=== PATIENT | male | born 2000 ===

== ENCOUNTER 2020-08-29 15:19 | Emergency (ER) | payer SELFPAY ==
[~2020-08-29] VITALS: Ht 177.8 cm; Wt 61.0 kg
--- NOTE | 2020-08-29 15:38 | NUR ---
FIRST CALL. NO ANSWER IN LOBBY
[2020-08-29 17:11] VITALS: BP 106/65
== END 2020-08-29 17:15 | disposition home or self-care (01) ==
LOC: ED 16:48
DX: L20.89 Other atopic dermatitis (principal)
CPT/HCPCS: 99282

== ENCOUNTER 2020-11-02 13:11 | Emergency (ER) | payer OTHER ==
[~2020-11-02] VITALS: Ht 172.7 cm; Wt 62.6 kg
[2020-11-02 15:25] VITALS: BP 115/77
--- NOTE | 2020-11-02 15:30 | NUR ---
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 PT SMELLS STRONGLY OF MARIJUANA.
[2020-11-02 15:50] LABS: BASOPHILS % (AUTO) 1 % (0-1); EOSINOPHILS % (AUTO) 0 % (1-7); LYMPHOCYTES % (AUTO) 39 % (22-44); MEAN CORPUSCULAR HGB CONC 31.8 g/dL (33.2-36.2); MEAN PLATELET VOLUME 7.2 fL (7.4-10.4); MONOCYTES % (AUTO) 20 % (2-9); NEUTROPHILS % (AUTO) 40 % (42-75); PLATELET COUNT 257 x10^3/uL (130-400); RED BLOOD COUNT 6.27 x10^6/uL (4.38-5.82); RED CELL DISTRIBUTION WIDTH 14.7 % (9.4-14.8)
[2020-11-02 16:06] LABS: ALBUMIN 4.2 g/dL (3.4-5.0); ANION GAP 4 mmol/L (5-15); CALCIUM 9.3 mg/dL (8.5-10.1); CHLORIDE 102 mmol/L (98-107)
[2020-11-02 16:08] LABS: ALANINE AMINOTRANSFERASE 20 U/L (12-78); ALKALINE PHOSPHATASE 91 U/L (45-117); BILIRUBIN,TOTAL 0.3 mg/dL (0.2-1.0); TOTAL PROTEIN 8.8 g/dL (6.4-8.2)
--- NOTE | 2020-11-02 16:19 | NUR ---
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
--- NOTE | 2020-11-02 16:30 | NUR ---
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
--- NOTE | 2020-11-02 16:56 | NUR ---
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
== END 2020-11-02 16:58 | disposition left against medical advice (07) ==
LOC: ED 16:50
DX: R51.9 Headache, unspecified (principal); M79.10 Myalgia, unspecified site
CPT/HCPCS: 36415; 80053; 85025; 99283

== ENCOUNTER 2020-11-03 19:48 | Emergency (ER) | payer OTHER ==
[~2020-11-03] VITALS: Ht 162.6 cm; Wt 63.0 kg
[2020-11-03 23:01] VITALS: BP 109/70
== END 2020-11-03 23:10 | disposition home or self-care (01) ==
LOC: ED 20:00
DX: U07.1 COVID-19 (principal); B34.9 Viral infection, unspecified; R51.9 Headache, unspecified; R00.0 Tachycardia, unspecified
CPT/HCPCS: 99283; U0003; U0005

== ENCOUNTER 2020-11-17 19:38 | Emergency (ER) | payer SELFPAY ==
[~2020-11-17] VITALS: Ht 167.6 cm; Wt 65.0 kg
[2020-11-17 19:45] VITALS: BP 110/57
[2020-11-17] MEDS ORDERED: ONDANSETRON ODT 4 MG ONE (19:48)
[2020-11-17] MEDS ORDERED: ONDANSETRON ODT 4 MG PO ONE (20:00)
--- NOTE | 2020-11-17 20:11 | NUR ---
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
--- NOTE | 2020-11-17 20:44 | NUR ---
VP CLINICAL: SPOKE WITH PT IN LOBBY REGARDING LABS, PT NOW AGREES TO HAVE LABS DRAWN. CALL PLACED TO LAB, WILL BE DRAWN SOON
[2020-11-17 21:02] LABS: BASOPHILS % (AUTO) 1 % (0-1); EOSINOPHILS % (AUTO) 1 % (1-7); LYMPHOCYTES % (AUTO) 43 % (22-44); MEAN CORPUSCULAR HEMOGLOBIN 22.9 pg (27.5-34.5); MEAN CORPUSCULAR HGB CONC 31.8 g/dL (33.2-36.2); MONOCYTES % (AUTO) 8 % (2-9); NEUTROPHILS % (AUTO) 47 % (42-75); PLATELET COUNT 392 x10^3/uL (130-400); RED BLOOD COUNT 5.88 x10^6/uL (4.38-5.82); RED CELL DISTRIBUTION WIDTH 14.6 % (9.4-14.8)
[2020-11-17 21:08] LABS: ALANINE AMINOTRANSFERASE 18 U/L (12-78); ALBUMIN 4.1 g/dL (3.4-5.0); ANION GAP 9 mmol/L (5-15); CALCIUM 9.1 mg/dL (8.5-10.1); CHLORIDE 108 mmol/L (98-107); CREATININE 0.86 mg/dL (0.7-1.3)
[2020-11-17 21:11] LABS: ALKALINE PHOSPHATASE 79 U/L (45-117); BILIRUBIN,TOTAL 0.4 mg/dL (0.2-1.0); TOTAL PROTEIN 8.5 g/dL (6.4-8.2)
== END 2020-11-18 00:07 | disposition left against medical advice (07) ==
LOC: ED 20:00
DX: U07.1 COVID-19 (principal); R11.2 Nausea with vomiting, unspecified
CPT/HCPCS: 36415; 80053; 85025; 99283; Q0162

== ENCOUNTER 2020-11-18 18:42 | Emergency (ER) | payer SELFPAY ==
[~2020-11-18] VITALS: Ht 170.2 cm; Wt 62.9 kg
[2020-11-18 18:45] VITALS: BP 101/84
--- NOTE | 2020-11-18 21:25 | NUR ---
NIL X1 WHEN CALLED BY PROVIDER
--- NOTE | 2020-11-18 21:35 | NUR ---
NIL X2 WHEN CALLED BY PROVIDER
--- NOTE | 2020-11-18 22:25 | NUR ---
NA X 3
== END 2020-11-18 22:26 | disposition left against medical advice (07) ==
LOC: ED 19:00
DX: R53.83 Other fatigue (principal); Z53.21 Procedure and treatment not carried out due to patient leaving prior to being seen by health care provider